=== PATIENT | female | born 1965 | race Caucasian/White ===

== ENCOUNTER 2017-03-26 17:53 | Emergency (ER) | payer BC ==
[~2017-03-26 17:53] MED LIST: TYLENOL DPS325 MG PO
--- NOTE | 2017-03-30 13:04 | ER ---
ADMIT: 03/26/2017 RM/LOC: ER [facility] MR#: [id number] [address] [id number] [place] [address] Emergency Room Report SEX: F AGE: 51 : 1965 DATE: 03/26/2017 CHIEF COMPLAINT: Chest pain. HISTORY OF PRESENT ILLNESS: This is a 51-year-old female, who presents with a day's duration of intermittent chest pains. States she has often episodes which she describes as pressure and stabbing that last less than a minute. Denies any onset during or worse with exertion. Rates it as a 4/10 radiating to the back. Associated with some nausea, sweating, and pounding in her chest. Denies any vomiting, shortness of breath, or cough. She does smoke a pack per day. She was in a year ago with similar complaints, admitted and worked up as an outpatient with a stress test. Echo normal at that time. Does admit to chronic back pain as well as recent weight loss without trying. No past cardiac disease. No diabetes, hypertension, hyperlipidemia. She states she has never had a DVT PE in the past. Does admit to a history of acid reflux as well asthma. ALLERGIES: ASPIRIN ALLERGY. MEDICATIONS: Takes Tylenol and Motrin as needed for pain. Otherwise, no medications. FAMILY HISTORY: She states she has a family history of a grandmother as well as an uncle both with cardiac disease in their 60s. COURSE IN THE EMERGENCY ROOM: GENERAL: The patient was seen and examined, afebrile and nontoxic. She is in no acute distress. HEENT: Head; normocephalic, atraumatic. NECK: Soft and supple. CHEST: Clear. LUNGS: She does have some wheezes in the bases. HEART: Regular. No murmurs, gallops, or rubs. ABDOMEN: Soft, nontender. SKIN: Warm and dry. No diaphoresis. EXTREMITIES: Nontender. No pedal edema. I did get an EKG on her, shows 71, normal sinus rhythm. No ST-T or Q wave abnormalities. White count 6.7, hemoglobin 14.5, hematocrit 42.9, platelets 338. Sodium 144, potassium 3.5, glucose 91, creatinine 0.9. CK 196, CK-MB 2.9, troponin less than 0.015. D-dimer is negative. UA shows 25 rbc's with no signs of acute infection. The patient states she is currently on her menses. I did give her a DuoNeb treatment today in the department, states this did improve her shortness of breath. 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 Pressured by her daughter to be evaluated today, states these pains have been on and off. IMPRESSION: 1. Chest pain. 2. Weight loss. DISPOSITION: The patient was discharged home. She is to follow up with Dr. Pate or provider of her choosing to discuss her risk factors as well as the weight loss. I did encourage her to stop smoking. Return certainly with any worsening signs or symptoms. Questions sought and answered to the best of my ability and to the patient's satisfaction. Discharged in stable condition. SUMAN Sher / Modesto Iyer MD / dru JOB #: [id number] CC: Alok Aguila MD, Attending Physician UNKNOWN, Family Physician
== END 2017-03-26 20:00 | disposition home or self-care (01) ==
LOC: ER 17:53
DX: R07.9 Chest pain, unspecified (principal); R63.4 Abnormal weight loss; J45.909 Unspecified asthma, uncomplicated; F17.210 Nicotine dependence, cigarettes, uncomplicated; Z88.6 Allergy status to analgesic agent; Z79.899 Other long term (current) drug therapy